=== PATIENT | male | born 1965 | race Caucasian/White ===

== ENCOUNTER → 2016-12-21 | Outpatient (CLI) | payer OTHER ==
--- NOTE | 2016-12-21 12:31 | ECHOS ---
DATE OF SERVICE: 12/21/2016 AGE: 51Y SEX: M HT: 70 WT: 245 lbs. Protocol Gustabo: X Others: Stress Echo Stage: 3 Dur. of Exercise: 8:15 *Heart Rate Blood Pressure *Rest: 67 Rest: 128/79 * *Max. Achieved: 150 Maximum BP: 198/86 85% PMHR: 144 100% PMHR: 169 *METS: 9.1 INDICATIONS: Chest pain. MEDICATIONS: Fenofibrate, metoprolol, losartan. Baseline rhythm is sinus mechanism, rate is 67, normal axis and intervals. Normal electrocardiogram. Baseline blood pressure 128/79 mmHg. Patient exercised on Gustabo protocol for 8 minutes 15 seconds reaching a peak rate of 150 beats per minute which is equal to 89% maximum predicted heart rate; peak blood pressure 198/86 mmHg. Test was terminated due to fatigue. There was no chest pain. Electrocardiographic monitoring revealed rate PVC's. There was no evidence of diagnostic ischemic ST deviation. FINDINGS: Baseline echocardiogram revealed normal wall motion. At peak exercise, there was normal wall motion augmentation with no hypokinesis or dyskinesis. CONCLUSION: 1. Average exercise tolerance with normal electrocardiograph response to exercise and rare premature ventricular contractions. 2. Normal stress echocardiogram with no evidence of stress-induced ischemia.
== END ==
LOC: RADNMMAIN 10:03
PROVIDERS: ATTEND Nurse Practitioner Family
DX: R07.89 Other chest pain (principal)
CPT/HCPCS: 93017; 93350

== ENCOUNTER → 2022-02-23 | Outpatient (CLI) | payer BC ==
--- NOTE | 2022-02-24 10:53 | NM ---
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 FINDINGS: There is homogenous distribution of activity throughout the gland, gland may be enlarged. The 4 hour iodine uptake is calculated at 25.5% (normal range 8-14%). The 24-hour iodine uptake is ca lculated at 52.1% (normal range 15-35%). IMPRESSION: Correlate for thyroiditis.
== END | disposition home or self-care (01) ==
LOC: RADNMMAIN 07:56
PROVIDERS: ATTEND Internal Medicine
DX: E05.00 Thyrotoxicosis with diffuse goiter without thyrotoxic crisis or storm (principal)
CPT/HCPCS: 78014; A9516

== ENCOUNTER → 2023-11-15 | Outpatient (CLI) | payer BC ==
--- NOTE | 2023-11-15 20:48 | US ---
EXAMINATION TYPE: US thyroid st tissue head/neck DATE OF EXAM: 11/15/2023 COMPARISON: [place] 2021 CLINICAL INDICATION: Male, 58 years old with history of E04.1 NONTOXIC SINGLE THYROID NODULE; Nodule per order. Patient takes levothyroxine. Patient had radioactive iodine in 2022. Patient states he has felt palpable lump toward left side of the neck that he noticed 6 months after the radioactive iodin e. GLAND SIZE: Right Lobe: 4.5 x 1.6 x 1.5 cm Overall Parenchyma: heterogenous Left Lobe: 3.8 x 1.4 x 1.4 cm Overall Parenchyma: heterogenous Isthmus Thickness: 0.2 cm NODULES RIGHT: # of nodules measured on right: 0 LEFT: # of nodules measured on left: 1 1. 0.7 X 0.6 x 0.6 cm, lower mid, solid or almost completely solid, hypoechoic TR4 nodule, which is as wide as it is tall, with smooth margins, without echogenic foci. Prior size: no prior ISTHMUS: # of nodules measured in the isthmus: 0 Bilateral neck scanned. Hyperechoic area seen within the left neck at patient's area of concern: 6.0 x 5.7 x 2.6 cm. IMPRESSION: 1. Large palpable area along the patient's left side of the neck measures 6.0 x 5.7 x 2.6 cm. A large lipoma is possible. Other etiologies not excluded at this time. Recommend contrast enhanced CT of th e neck to further evaluate. 2. A solitary 7 mm TR4 left thyroid lobe nodule. 2017 ACR TI-RADS LEVEL: TR-RADS 4 - Moderately Suspicious: Follow if > 1 cm, FNA if > 1.5 cm *Highest TI-RADS level nodule reported
== END | disposition home or self-care (01) ==
LOC: RADUSWWP 12:10
PROVIDERS: ATTEND Family Medicine
DX: E04.1 Nontoxic single thyroid nodule (principal); R22.1 Localized swelling, mass and lump, neck
CPT/HCPCS: 76536

== ENCOUNTER → 2023-11-17 | Outpatient (CLI) | payer BC ==
--- NOTE | 2023-11-17 22:22 | CT ---
EXAMINATION TYPE: CT soft tissue neck w con CT DLP: 700.1 mGycm, Automated exposure control for dose reduction was used. DATE OF EXAM: 11/17/2023 4:22 PM COMPARISON: None. CLINICAL INDICATION:Male, 58 years old with history of E04.1 NONTOXIC SINGLE THYROID NODULE; PHH, thy roid problems x 6 months TECHNIQUE: Standard enhanced CT of the neck. Axial sections with coronal and sagittal reformats were obtained. Contrast used:100 mL of Isovue 300 with IV Contrast, (None if empty) Oral contrast used: (None if empty) FINDINGS: Brain: Visualized portions are grossly unremarkable. Orbits: Unremarkable Sinuses: Grossly unremarkable. Spaces of the neck: Clear and symmetric. Musculoskeletal: No acute osseous pathology. Lymph nodes: Multiple nonenlarged lymph nodes are seen along both anterior chains of the neck. Vascular structures: Visualized major arteries are patent without evidence of aneurysm. Thoracic Inlet/airway: Airway is patent. The lung apices are clear. Soft tissues/Thyroid: Fat-containing lesion situated anterior/superficial to the left thyroid gland m easuring 42 x 23 x 57 mm. Thyroid gland appears symmetric and within normal limits. Other: none. IMPRESSION Subcutaneous fat containing lesion likely representing lipoma is situated just anterior to the left t hyroid gland. Normal appearance of the thyroid gland.
== END | disposition home or self-care (01) ==
LOC: RADCTMAIN 15:44
PROVIDERS: ATTEND Family Medicine
DX: E07.9 Disorder of thyroid, unspecified (principal); E04.1 Nontoxic single thyroid nodule
CPT/HCPCS: 70491; Q9967